=== PATIENT | female | born 1990 | race Caucasian/White ===

== ENCOUNTER 2020-12-22 06:10 | Outpatient (REF) | payer OTHER, SELFPAY | END 2020-12-22 06:11 | disposition home or self-care (01) | LOC: HO.HMGCLDS 06:10 | PROVIDERS: PCP Internal Medicine; Visit Provider Internal Medicine | DX: Z20.822 Contact with and (suspected) exposure to COVID-19 (principal) | CPT/HCPCS: C9803; U0003; U0005 ==